=== PATIENT | female | born 1980 | race Caucasian/White ===

== ENCOUNTER 2020-07-07 16:50 | Emergency (ER) | payer OTHER, SELFPAY ==
[2020-07-07 16:58] VITALS: BP 119/87; PULSE 93; RESP 16; TEMP 36.9; O2SAT 98; BMI 31.6
--- NOTE | 2020-07-07 17:13 | CT_ITS ---
PROCEDURE: CT ABDOMEN PELVIS W CON CLINICAL INDICATION: abd pain Abdominal pain with nausea and diarrhea COMPARISON: No exams were available for comparison TECHNIQUE: IV Contrast: 75ML Isovue 370 Oral Contrast None Axial images obtained with sagittal and coronal reformats. All CT scans at the facility use one or more dose reduction, viz: automated exposure control, ma/kV adjustment per patient size (including targeted exams where dose is matched to indication, i.e. head), or iterative reconstruction technique. FINDINGS: LOWER THORAX: No acute finding ABDOMEN & PELVIS: There is a uniformly enhancing 2 cm right hepatic lobe mass. There has been a prior cholecystectomy. There is borderline splenomegaly at 13 cm. There is a 2 cm indeterminate nodule of the left adrenal gland. The right adrenal gland, pancreas, have an unremarkable appearance. There are punctate left-sided renal calculi measuring up to 3 mm in the lower pole. No ureteral calculus. No hydronephrosis. No evidence of appendicitis. No intestinal obstruction or free air. No evidence of diverticulitis. There are few small nodes in the periaortic region which are nonspecific. There has been a prior hysterectomy. No acute bony findings. IMPRESSION: 1. Nonobstructing left nephrolithiasis. 2. 2 cm indeterminate uniformly enhancing right hepatic lobe mass, possible hemangioma. Consider MRI with hemangioma protocol for further evaluation. 3. 2 cm indeterminate left adrenal nodule. Consider MRI for further evaluation. Dictated by: Joby Membreno MD 07/08/2020 06:15 Joby Membreno MD in [place] 07/08/2020 06:15
--- NOTE | 2020-07-07 17:16 | HMH.EDGENADL ---
ED Disposition Clinical Impression: Right lower quadrant abdominal pain Disposition: Home, Self-Care Condition on Discharge: Fair Instructions: DI for Abdominal Pain-Adult Additional Instructions: Tylenol or ibuprofen as needed, may take Bentyl for pain. Zofran for nausea. Additional instructions for ABDOMINAL PAIN: Call your primary care provider tomorrow to arrange further evaluation. Return immediately if worsening abdominal pain, vomiting, shortness of breath, fever, vomiting of blood or abdominal distention. Your CT scan tonight showed a couple of findings that need follow-up: Liver mass that is probably a hemangioma Left adrenal mass Prescriptions: Dicyclomine HCl [Bentyl 10mg capsule] 10 mg PO TIDP PRN #10 cap PRN Reason: Cramping Transmission Status: Pending to [id number] Ondansetron [Zofran 4mg ODT] 4 mg PO TIDP PRN #10 tab.rapdis PRN Reason: Nausea And Vomiting Transmission Status: Pending to [id number] Referrals: Nesha Grullon [Primary Care Provider] - - Critical Care Critical Care Time: No Attestation: On 07/07/20, the high probability of a clinically significant, sudden or life threatening deterioration of the following system(s) required my full and direct attention, intervention and personal management. The time I documented below is in addition to time spent performing reported procedures but includes the following listed in this critical care notation. Medical Decision Making - Dixon Inquiry Pt receiving controlled substance: Yes Dixon was queried for this patient: No Reason not queried -: Emergent pt cond-no time Risks and benefits of using a controlled substance: were not discussed with pt by me Vital Signs: 07/07/20 16:58 07/07/20 18:06 07/07/20 19:01 Temperature 98.5 F Temperature Source Oral Pulse Rate [Right Radial] 93 H 66 59 L Respiratory Rate 16 18 20 Blood Pressure [Right Arm] 119/87 122/85 122/76 Blood Pressure Mean [Right Arm] 97 97 91 Blood Pressure Source [Right Arm] Automatic Cuff Automatic Cuff Automatic Cuff Blood Pressure Position [Right Arm] Sitting Sitting 02 Sat by Pulse Oximetry 98 98 100 Oxygen Delivery Method Room Air Room Air - Lab Data Lab Results 07/07/20 17:09: Urine Color Yellow, Urine Appearance Clear, Urine pH 6.5, Ur Specific [place] 1.025, Urine Protein Negative, Urine Glucose (UA) Negative, Urine Ketones Negative, Urine Blood Trace-l, Urine Nitrate Negative, Urine Bilirubin Negative, Urine Urobilinogen 0.2, Ur Leukocyte Esterase Negative, Urine WBC 3-5, Ur Squamous Epith Cells 10-20, Urine Bacteria 1+ 07/07/20 17:09: WBC 9.2, RBC 4.86, Hgb 14.6, Hct 43.8, MCV 90.2, MCH 30.1, MCHC 33.4, RDW 12.7, Plt Count 362, MPV 7.8, Neut % (Auto) 62.1, Lymph % (Auto) 29.5, [place] % (Auto) 5.2, Eos % (Auto) 2.5, Baso % (Auto) 0.7, Neut # (Auto) 5.7, Lymph # (Auto) 2.7, [place] # (Auto) 0.5, Eos # (Auto) 0.2, Baso # (Auto) 0.1 07/07/20 17:09: Sodium 140, Potassium 3.9, Chloride 104, Carbon Dioxide 29, Anion Gap 10.9, BUN 8, Creatinine 0.80, Estimated Creat Clear 138, Estimated GFR 79, Est GFR ( Amer) 96, Glucose 99, Calcium 9.4, Total Bilirubin 0.4, AST 23, ALT 24, Alkaline Phosphatase 76, Total Protein 7.5, Albumin 4.2, Globulin 3.3 H, Albumin/Globulin Ratio 1.3, Amylase 40, Lipase 70 Result diagrams: 07/07/20 17:09 07/07/20 17:09 Orders (Tests/Meds): ED MEDICATIONS Discontinued Medications Generic Name Dose Route Start Last Admin Trade Name Shonna PRN Reason Stop Dose Admin Iopamidol 75 ml 07/07/20 17:45 07/07/20 17:46 Iopamidol-370 (76%); 50ml Vial IV 07/07/20 17:46 75 ml ONCE ONE Administration Morphine Sulfate 4 mg 07/07/20 17:25 07/07/20 17:54 Morphine 4mg/Ml Syringe IV 07/07/20 17:26 4 mg ONCE ONE Administration Ondansetron HCl 4 mg 07/07/20 17:25 07/07/20 17:54 Ondansetron 4mg/2ml Vial IV 07/07/20 17:26 4 mg ONCE ONE Administration Sodium Chloride 1,000 ml 11
[2020-07-07 17:18] LABS: Microscopic, Urine URINE MICROSCOPIC (MICROSCOPIC)
[2020-07-07 17:21] LABS: Appearance,Urine CLEAR (Clear); Basophils # 0.1 K/mm3 (0-0.2); Basophils % 0.7 % (0.1-2.0); Bilirubin,Urine Negative (Negative); Blood, Urine TRACE-L (Negative); Color,Urine YELLOW (Yellow); Eosinophils # 0.2 K/mm3 (0.0-0.4); Eosinophils % 2.5 % (0.1-12.0); Glucose,Urine (UA) Negative (Negative); Hematocrit 43.8 % (37.0-47.0); Hemoglobin 14.6 g/dL (12.2-16.2); Ketones,Urine Negative (Negative); Leukocyte Esterase,Urine Negative (Negative); Lymphocytes # 2.7 K/mm3 (0.7-4.5); Lymphocytes % 29.5 % (10-50); Mean Corpuscular HGB Conc 33.4 g/dL (31.8-35.4); Mean Corpuscular Hemoglobin 30.1 pg (27.0-31.2); Mean Corpuscular Volume 90.2 fl (81-99); Mean Platelet Volume 7.8 fl (7.4-10.4); Monocytes # 0.5 K/mm3 (0.1-1.0); Monocytes % 5.2 % (1.7-9.3); Neutrophils # 5.7 K/mm3 (1.8-7.8); Neutrophils % 62.1 % (37.0-80.0); Nitrate,Urine Negative (Negative); PH,Urine 6.5 (5.0-8.5); Platelet Count 362 K/mm3 (142-424); Protein,Urine Negative (Negative); Red Blood Count 4.86 M/mm3 (4.20-5.40); Red Cell Distribution Width 12.7 % (11.5-17.5); Specific Gravity, Urine 1.025 (1.005-1.030); Urobilinogen,Urine 0.2 EU/dl (0.2); White Blood Count 9.2 K/mm3 (4.8-10.8)
[2020-07-07 17:23] LABS: Chloride 104 mmol/L (98-107); Potassium 3.9 mmoL/L (3.5-5.1); Sodium 140 mmol/L (136-145)
[2020-07-07 17:25] LABS: Amylase 40 U/L (30-110)
[2020-07-07 17:26] LABS: Alanine Aminotransferase 24 U/L (12-78); Albumin Level 4.2 g/dl (3.5-5.0); Albumin/Globulin Ratio 1.3 (1.1-1.8); Alkaline Phosphatase 76 U/L (38-126); Anion Gap 10.9 mEq/L (5-15); Aspartate Amino Transferase 23 U/L (14-36); Bilirubin,Total 0.4 mg/dl (0.2-1.3); Blood Urea Nitrogen 8 mg/dl (7-17); Calcium 9.4 mg/dl (8.4-10.2); Carbon Dioxide 29 mmol/L (22.0-30.0); Creatinine Clearance Estimated 138 mL/min (50-200); Estimated Glomerular Filt Rate 79 ml/min (>60); GFR (African American) 96 ML/MIN (>60); Globulin 3.3 g/dL (1.3-3.2); Glucose 99 mg/dl (74-100); Lipase 70 U/L (23-300); Total Protein,Serum 7.5 g/dl (6.3-8.2)
[2020-07-07 17:39] LABS: Bacteria,Urine 1+ /lpf
--- NOTE | 2020-07-07 17:45 | PC.NURSE ---
pt return from CT
[2020-07-07 18:06] VITALS: BP 122/85; PULSE 66; RESP 18; O2SAT 98
[2020-07-07 19:01] VITALS: BP 122/76; PULSE 59; RESP 20; O2SAT 100
[2020-07-07 19:29] VITALS: BP 129/85; PULSE 75; RESP 18; TEMP 36.8
[2020-07-07 19:32] VITALS: BP 120/85; PULSE 64; RESP 16; TEMP 36.8; O2SAT 100
== END 2020-07-07 19:36 | disposition home or self-care (01) ==
PROVIDERS: Emergency Provider Emergency Medicine; PCP Nurse Practitioner Family
DX: R10.31 Right lower quadrant pain (principal); F41.9 Anxiety disorder, unspecified
CPT/HCPCS: 74177; 80053; 81001; 82150; 83690; 85025; 96365; 96375; 99283; J2405; Q9967

== ENCOUNTER 2020-07-20 17:02 | Emergency (ER) | payer OTHER, SELFPAY ==
--- NOTE | 2020-07-20 17:35 | PC.NURSE ---
REQUESTED TO GO TO ER AT THIS TIME BECAUSE THEY DIDN'T WANT TO WAIT ANY LONGER
[2020-07-20 17:47] VITALS: BP 134/92; PULSE 78; RESP 16; TEMP 36.9; O2SAT 100; BMI 31.6
--- NOTE | 2020-07-20 18:06 | HMH.EDDENT ---
ED Disposition Clinical Impression: Toothache Disposition: Home, Self-Care Condition on Discharge: Good Prescriptions: Naproxen Sodium [Anaprox Ds] 550 mg PO BID PRN #20 tab PRN Reason: Mild To Moderate Pain Transmission Status: Pending to [id number] Referrals: Nesha Grullon [Primary Care Provider] - - Critical Care Critical Care Time: No Attestation: On 07/20/20, the high probability of a clinically significant, sudden or life threatening deterioration of the following system(s) required my full and direct attention, intervention and personal management. The time I documented below is in addition to time spent performing reported procedures but includes the following listed in this critical care notation. Medical Decision Making - Medical Records Medical records reviewed: Yes: I reviewed the patient's medical records. - Dixon Inquiry Pt receiving controlled substance: No Vital Signs: 07/20/20 17:47 Temperature 98.4 F Temperature Source Oral Pulse Rate [Right Radial] 78 Respiratory Rate 16 Blood Pressure [Right Arm] 134/92 H Blood Pressure Mean [Right Arm] 106 Blood Pressure Source [Right Arm] Automatic Cuff Blood Pressure Position [Right Arm] Sitting 02 Sat by Pulse Oximetry 100 Oxygen Delivery Method Room Air - Lab Data Lab results reviewed: Yes: I reviewed the patient's lab results. Medical Decision Narrative: 40-year-old female presenting with chronic tooth pain. Nontoxic, afebrile. Submandibular space is soft and airways patent. No Emma's angina or ANUG. We will switch ibuprofen to Anaprox and have patient follow-up with dentistry Dental HPI - General Chief complaint: Dental/Oral Stated complaint: tooth ache possible infection Time Seen by Provider: 07/20/20 18:07 Mode of Arrival: Ambulatory Limitations: No Limitations Description of Symptoms (Recalled from ER Triage Doc. by RN): Pt reports L sided lower dental pain x2 days - History of Present Illness HPI Narrative: 40-year-old female with dental caries and chronic tooth pain recently seen by dentistry and was told to have her tooth extracted after finishing a course of amoxicillin presenting with persistent pain that got worse in the last 2 days. She has been taking ibuprofen with some relief. No fever, chills, difficulty swallowing, swelling, cough, shortness of breath - Related Data Previous Rx's Medication Instructions Recorded Brompheniramine/Pseudoephed/Dm 10 ml PO QID PRN #240 ml 04/16/18 [Bromfed Dm Cough Syrup] Dicyclomine HCl [Bentyl 10mg 10 mg PO TIDP PRN #10 cap 07/07/20 capsule] Ondansetron [Zofran 4mg ODT] 4 mg PO TIDP PRN #10 tab.rapdis 07/07/20 Naproxen Sodium [Anaprox Ds] 550 mg PO BID PRN #20 tab 07/20/20 Allergies Allergy/AdvReac Type Severity Reaction Status Date / Time No Known Allergies Allergy Verified 04/16/18 12:56 [facility] History - Hepatitis A Screen Drug use history?: No High risk sexual behaviors?: No History of sexually transmitted infection?: No Currently employed?: No Childcare worker?: No Do you have indoor plumbing?: Yes Do you have electricity?: Yes Attestation statement:: This patient has been screened for Hepatitis A risk factors. I have reviewed the patient's past medical history: Yes Medical History: Reports:: Anxiety Denies:: Cancer, Diabetes Mellitus Type 1, Diabetes Mellitus Type 2, Hypertension, MRSA Other Medical History: Reports: Other (neuropathy) Other Surgeries: Yes: Cholecystectomy, (x3), Hernia Repair, Other (hysterectomy) Amputation: No Fractures: No - Social History Smoking Status: Current every day smoker Tobacco Type: cigarettes Alcohol Intake: never Occupational Status: other - Psychiatric History Pschychiatric History:: Reports:: Anxiety ROS Obtained: Yes All systems reviewed & no additional complaints Physical Exam General: well developed, well hydrated, no acute distress Head: Normocephalic, atraum
[2020-07-20 18:38] VITALS: BP 123/91; PULSE 68; RESP 17; TEMP 36.9; O2SAT 98
== END 2020-07-20 18:39 | disposition home or self-care (01) ==
LOC: UTC 17:04 → ER 17:38
PROVIDERS: Emergency Provider Physician Assistant; PCP Nurse Practitioner Family
DX: K08.89 Other specified disorders of teeth and supporting structures (principal); F41.9 Anxiety disorder, unspecified; F17.210 Nicotine dependence, cigarettes, uncomplicated; Z90.49 Acquired absence of other specified parts of digestive tract
CPT/HCPCS: 99281

== ENCOUNTER → 2020-07-23 08:34 | Outpatient (CLI) | payer OTHER, SELFPAY ==
--- NOTE | 2020-07-23 08:37 | MR_ITS ---
PROCEDURE: MR ABDOMEN WO/W CON CLINICAL INDICATION: NEOPLASM OF UNCERTAIN BEHAVIOR OF LIVER NEOPLASM OF UNCERTAIN BEHAVIOR OF LIVER. UMBILICAL AND ABDOMINAL PAIN WITH NAUSEA. ABNORMAL CT 07-07-20. 19ML PROHANCE GIVEN. LOT:[id number] EXP:SEP 2022 COMPARISON: CT CT ABDOMEN PELVIS W CON from 07/07/2020 TECHNIQUE: Routine multiplanar multi echo sequences are performed without and with gadolinium enhancement. FINDINGS: There was a 1.9 cm area slight increased density in the right hepatic lobe noted on the recent CT scan of 07/07/2020. This area shows slight increased T2 signal to the surrounding liver. This is isointense on the in and out of phase images. There is increased signal on the diffusion-weighted images and also slight increased signal on the ADC images. There is minimal enhancement. Also noted is a left adrenal nodule measuring 16 mm which shows decreased signal intensity on the out of phase images consistent with an adenoma. IMPRESSION: 1. Indeterminate nodule of the right lobe of the liver. This does not have signal characteristics of focal fatty sparing or hemangioma. Possibly due to hepatic adenoma. Cannot exclude a neoplastic focus. Suggest 3 month follow-up MRI. 2. Left adrenal adenoma. Dictated by: Joby Membreno MD 07/30/2020 10:51 Joby Membreno MD in [place] 07/30/2020 10:51
== END ==
PROVIDERS: PCP Nurse Practitioner Family; Visit Provider Nurse Practitioner Family
DX: D37.6 Neoplasm of uncertain behavior of liver, gallbladder and bile ducts (principal)
CPT/HCPCS: 74183; A9576

== ENCOUNTER → 2020-07-29 13:55 | Outpatient (CLI) | payer OTHER, SELFPAY ==
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
== END ==
PROVIDERS: PCP Nurse Practitioner Family; Visit Provider Orthopaedic Surgery
DX: M50.10 Cervical disc disorder with radiculopathy, unspecified cervical region (principal); M54.16 Radiculopathy, lumbar region
CPT/HCPCS: 72141; 72148; 76376